=== PATIENT | male | born 1965 | race Caucasian/White ===

== ENCOUNTER 2018-08-30 13:51 | Emergency (ER) | payer BC ==
--- NOTE | 2018-08-30 14:01 | EDPHY ---
H & P Time Seen by Provider: 08/30/18 14:01 HPI/ROS: HPI: This is a 53-year-old male who presents with Chief Complaint: Left thumb laceration Location: Left thumb Quality: Laceration Duration: Prior to arrival Signs and Symptoms: + bleeding, no radiation, no numbness, no weakness, no tingling, no incontinence, no decreased range of motion, no swelling, no pain, no fever Timing: Acute Severity: Mild Context: Patient is right-hand dominant, presents with complaints of accidentally cutting his left thumb with [employer] prior to arrival. Reports that he cut the distal portion of his thumb with immediate pain and bleeding. The bleeding would not stop with direct pressure. He initially put a Band-Aid on it but it he continued to bleed through the Band-Aid. Denies being on any blood thinners. Denies radiation, weakness, decreased range of motion. Modifying Factors: Direct pressure Comment: ROS: A comprehensive 10 system review of systems is otherwise negative aside from elements mentioned in the history of present illness. MEDICAL/SURGICAL/SOCIAL HISTORY: Medical history: Hypothyroidism, hypertension. Surgical history: Denies Social history: Employed. CONSTITUTIONAL: Pleasant and cooperative middle-aged white male, awake and alert, no obvious distress HEENT: Atraumatic and normocephalic. NECK: supple EXTREMITIES: 2/2 pulses, strength 5/5, left thumb lateral portion; 2.5 cm superficial, linear laceration that extends through 1/8 of the nail; DIP/PIP/ MCP flexion/extension intact with good light touch sensation. no deformities, no clubbing, no cyanosis or edema. NEUROLOGICAL: no focal neuro deficits. GCS 15. Light touch sensation intact. SKIN: Warm and dry, no erythema. no rash. Good capillary refill. Source: Patient Exam Limitations: No limitations Constitutional: Initial Vital Signs Temperature (C) 36.8 C 08/30/18 14:00 Heart Rate 94 08/30/18 14:00 Respiratory Rate 16 08/30/18 14:00 Blood Pressure 143/78 H 08/30/18 14:00 O2 Sat (%) 96 08/30/18 14:00 O2 Delivery Mode Room Air Allergies/Adverse Reactions: No Known Allergies Allergy (Unverified 08/30/18 14:00) Home Medications: Medication Instructions Recorded Levothyroxine 08/30/18 Lisinopril 08/30/18 Medical Decision Making Procedures: Procedure: Laceration repair. Verbal consent was obtained from the patient. The 2.5 cm, superficial, linear, simple laceration on the tip of the left thumb was anesthetized in the usual fashion using 2 mL of 1% lidocaine without epinephrine. The wound was irrigated , draped and explored to its base with a gloved finger. There were no deep structures involved. No tendon injury was identified. The wound was repaired with #2, 6 0 Prolene in simple interrupted pattern. Good hemostasis was achieved and patient tolerated procedure well. Clean sterile dressing applied. The procedure was performed by myself. ED Course/Re-evaluation: Reports tetanus is current. Local anesthesia, copiously irrigated, laceration repair, clean sterile dressing placed Written and verbal wound care instructions provided. No signs of neurovascular compromise/tenting of skin/compartment syndrome/ extremities and joints examined above and below area of concern and are neurovascularly intact. This patient was seen under the supervision of my secondary supervising physician. I evaluated care for this patient independently. Discussed this patient with Dr. Anne. Differential Diagnosis: Differential diagnosis includes but is not limited to nerve injury, tendon injury, laceration, nail involvement. Departure - Departure Disposition: Home, Routine, Self-Care Clinical Impression: Laceration of left thumb without complication Qualifiers: Encounter type: initial encounter Qualified Code(s): S61.012A - Laceration without foreign body of left thumb without damage to nail, initial encounter Condition: Good Instructions: Care For Your Stitches (ED), Laceration (ED) Additional Instructions: Keep the dressing dry and in place for 48 hours. After 48 hours, you may remove the dressing; wash the site daily with mild soap and water; then pat dry. Keep covered with sterile dressing until fully healed. Take Tylenol 650 mg every 4 hours and/or Ibuprofen 600 mg every 8 hours with food as needed for pain. Wound Care Follow-Up: Removal of sutures in [7-10] days. Suture removal is complimentary in uncomplicated cases. Infection or abnormal findings would require reevaluation by the MD. In that case, you may be billed. Return to the ER immediately if you experience new or worsening pain, discoloration, numbness, tingling, or any other symptoms that concern you. Referrals: ASHLEY PHILIPPE [Primary Care Provider] - Follow Up Only If Needed
[2018-08-30 14:02] VITALS: BP 143/78
== END 2018-08-30 15:06 | disposition home or self-care (01) ==
PROC: 0HQGXZZ Repair Left Hand Skin, External Approach (ICD-10-PCS; principal; 2018-08-30)
DX: S61.012A Laceration without foreign body of left thumb without damage to nail, initial encounter (principal); I10 Essential (primary) hypertension; E03.9 Hypothyroidism, unspecified; W27.2XXA Contact with scissors, initial encounter; Y93.H2 Activity, gardening and landscaping; Y92.9 Unspecified place or not applicable; Y99.9 Unspecified external cause status